=== PATIENT | male | born 1995 | race American Indian/Alaskan Native ===

== ENCOUNTER 2020-11-13 02:15 | Emergency (ER) | payer SELFPAY ==
[~2020-11-13] VITALS: Ht 167.6 cm; Wt 68.6 kg
[2020-11-13] MEDS ORDERED: LIDOCAINE 1%/EPI 1:200,000/PF 10 ML VIAL SQ ONE (03:00)
[2020-11-13] MEDS ORDERED: BACITRACIN 0.9 GM PACKET OINTMENT TP ONE (03:00)
[2020-11-13] MEDS ORDERED: PERTUSS(ACELL),DIPH,TET VAC/PF 0.5 ML SYRINGE IM. ONE (03:00)
[2020-11-13] MEDS ORDERED: DOXYCYCLINE HYCLATE 100 MG TABLET PO ONE (04:00)
[2020-11-13 04:40] VITALS: BP 106/62
== END 2020-11-13 04:40 | disposition home or self-care (01) ==
LOC: EMS 02:16
DX: S61.215A Laceration without foreign body of left ring finger without damage to nail, initial encounter (principal); W26.0XXA Contact with knife, initial encounter; Y93.89 Activity, other specified; Y92.89 Other specified places as the place of occurrence of the external cause; Y99.8 Other external cause status
CPT/HCPCS: 12001; 73130; 90471; 90715; 99283; J3490

== ENCOUNTER 2020-11-26 22:10 | Emergency (ER) | payer MEDICAID ==
[~2020-11-26] VITALS: Ht 167.6 cm; Wt 68.0 kg
[2020-11-26 23:14] VITALS: BP 122/86
== END 2020-11-26 23:32 | disposition left against medical advice (07) ==
LOC: EMS 22:11
DX: R42 Dizziness and giddiness (principal); F17.210 Nicotine dependence, cigarettes, uncomplicated
CPT/HCPCS: 99283; Z7502

== ENCOUNTER 2021-02-05 18:23 | Emergency (ER) | payer MEDICAID, OTHER ==
[~2021-02-05] VITALS: Ht 170.2 cm; Wt 63.6 kg
[2021-02-05] MEDS ORDERED: HydrOXYzine PAMOATE 25 MG CAPSULE PO ONE (19:45)
[2021-02-05 20:30] VITALS: BP 133/89
== END 2021-02-05 20:55 | disposition home or self-care (01) ==
LOC: EMS 18:25
DX: F41.9 Anxiety disorder, unspecified (principal); F15.10 Other stimulant abuse, uncomplicated; F17.210 Nicotine dependence, cigarettes, uncomplicated; F12.90 Cannabis use, unspecified, uncomplicated
CPT/HCPCS: 71045; 93005; 99283

== ENCOUNTER 2021-12-04 05:32 | Emergency (ER) | payer OTHER ==
[~2021-12-04] VITALS: Ht 170.2 cm; Wt 77.3 kg
[2021-12-04 05:35] VITALS: BP 120/66
[2021-12-04] MEDS ORDERED: CEPH-558 PO (06:17)
[2021-12-04] MEDS ORDERED: SULF-261 PO (06:17)
== END 2021-12-04 06:56 | disposition home or self-care (01) ==
LOC: EMS 05:34
DX: L02.416 Cutaneous abscess of left lower limb (principal); F12.10 Cannabis abuse, uncomplicated; F17.210 Nicotine dependence, cigarettes, uncomplicated
CPT/HCPCS: 99283; Z7502